=== PATIENT | male | born 1940 | race Caucasian/White ===

== ENCOUNTER 2016-10-12 19:15 | Emergency (ER) | payer MEDICARE, BC ==
[~2016-10-12] VITALS: Ht 188 cm; Wt 102.7 kg
[~2016-10-12 19:15] MED LIST: ASCO-297 PO; ASPI-730 PO; ATOR80TA17 PO; FERR-67 PO; FISH1CAP29 PO; LOSA50TA17 PO; METO25TA6 PO; MULT1CAP47 PO; NITR0.4T39 SL; OMEP20TA2 PO; [UNRECOGNIZED DRUG - CODE] PO
--- OUTSIDE RECORDS SUMMARY | 2016-10-12 19:19 | XMS REPORT | Continuity of Care Document ---
Author Author [facility] Organization [facility] Address Unknown Phone Unavailable Care Team Providers Care Sourcing Intern Name Role Phone AURELIA WEEMS II, MD Primary Care Physician [phone] Insurance Providers Guarantor Christy Sparks Jr Address [address] [place] [id number] Email [email or web address] [email or web address] Policy Number [id number] Subscriber's Name Christy Sparks Jr Relationship 18 Self Group Number [id number] Effective Date 07 Payer Medicare Policy Number [id number] Subscriber's Name Christy Sparks Jr Relationship 18 Self Effective Date 07 Chief Complaint and Reason for Visit Chief Complaint Blood Pressure Check Reason for Visit Blood pressure check Problems Past Problems Medical Problem Onset Date Blood pressure check Unknown Medications Current Home Medications Medication Dose Units Route Directions Days Qty Instructions Start Date Ascorbic Acid (Vitamin C) 1,000 Mg Tablet 1,000 Mg Oral Daily Aspirin 325 Mg Tablet 325 Mg Oral Daily 12/26/10 Atorvastatin Calcium (Lipitor) 80 Mg Tablet 80 Mg Oral Daily Ferrous Sulfate (Iron Supplement) 325 Mg Tablet 1 Tab Oral Twice A Day 60 Tablet 02/07/16 Fish Oil/[place]-3 Fatty Acids (Fish Oil 1,000 Mg Capsule) 1 Cap Capsule 2 Cap Oral Daily 12/26/10 Flaxseed Oil (Flax Seed Oil) 1,000 Mg Capsule 1,000 Mg Oral Twice A Day 12/26/10 Losartan Potassium (Cozaar) 50 Mg Tablet 50 Mg Oral Daily Metoprolol Tartrate 25 Mg Tablet 1 Tab Oral Twice A Day 180 Multivitamins W-Minerals (Multivitamin) 1 Cap Capsule 1 Cap Oral Daily 12/26/10 Nitroglycerin 0.4 Mg Tab.subl 0.4 Mg Sublingual as needed for Chest Tightness 02/07/16 Omeprazole Magnesium (Prilosec Otc) 20 Mg Tablet. 1 Tab Oral Daily 02/07/16 Social History Social History Problem Response Recorded Date/Time Onset Date Status Hx Substance Use No 02/07/2016 8:28am Not Applicable Not Applicable Hx Alcohol Use No 02/07/2016 8:28am Not Applicable Not Applicable Has the pt used tobacco in the last 12 months No 02/07/2016 8:28am Not Applicable Not Applicable Hospital Discharge Instructions No hospital discharge instructions. Plan of Care Discharge Date 10/12/16 6:50pm Disposition 01 DISCHARGED HOME, SELF-CARE Condition at Discharge Stable Prescriptions See Medication Section Referrals AURELIA WEEMS II, MD Address: [address] [place] [address] [id number] Functional Status No functional status results. Allergies, Adverse Reactions, Alerts Allergen Type Severity Reaction Status Last Updated No Known Drug Allergies Allergy Mild Active 12/26/10 Immunizations Query Response on File Recorded Date/Time Hx Influenza Vaccination Y FALL 201402/07/16 8:28am Hx Pneumococcal Vaccination Y WITHIN PAST 5 YEARS 02/07/16 8:28am Hx Influenza Vaccination Y fall 201402/07/16 8:28am Vital Signs Acute Vital Signs Vital Response Date/Time Pulse Rate (adult) 144 bpm (60 - 100) 10/12/2016 6:43pm O2 Sat by Pulse Oximetry 95 % (90 - 100) 10/12/2016 6:43pm Blood Pressure 97/68 mm Hg 10/12/2016 6:43pm Results No known relevant diagnostic tests, laboratory data and/or discharge summary. Procedures No known history of procedures. Encounters Encounter Location Arrival/Admit Date Discharge/Depart Date Attending Provider Departed Emergency Room [facility] 10/12/16 6:42pm 10/12/16 6: 50pm SHAUNA CHÁVEZ APRN Recent Diagnosis
[2016-10-12 19:34] VITALS: Ht 188 cm; Wt 102.7 kg
[2016-10-12] MEDS ORDERED: NORMAL SALINE 1,000 ML IV ONE (21:00)
--- NOTE | 2016-10-12 21:05 | ERPDOC ---
Departure Disposition Decision Date: Oct 12, 2016 Disposition Decision Time: 23:11 Disposition: 01 DISCHARGED HOME, SELF-CARE Impression Impression Impression: Primary Impression: Volume depletion Additional Impressions: Hypotension Hypotension type: orthostatic hypotension Qualified Codes: I95.1 - Orthostatic hypotension Tachycardia Severity: Moderate Condition: Improved Seen By: Physician only Referrals: AURELIA WEEMS II, MD (PCP/Family) Patient Instructions: Dehydration (ED) Problems/Meds/Labs Reviewed?: Yes Medications reviewed and manag: Yes Additional Instructions: Add an additional 2 glasses of fluid daily See your doctor for any ongoing symptoms. Follow up care ordered?: Yes Mental Status: Alert HPI - General Medical General Chief Complaint: Acute Medical Problem Stated Complaint: LOW BLOOD PRESSURE/HIGH PULSE Time Seen by Provider: 19:26 Source: patient, family Exam Limitations: no limitations HPI - General Medical Initial Comments Patient began feeling weak earlier in the day, after he received his Prevnar 23 shot yesterday. Patient checked his blood pressure and pulse at home, was found to have 140 pulse, with blood pressure 88/45. Patient double checked, and then went to the [address] [place] [address] walk-in clinic, where he was found to have a significant low blood pressure, elevated pulse, and was directed to the ER. Currently the patient states he's feeling better after rest, although he does admit he gets up and walks he becomes slightly sweaty. Occurred At: home Onset: Rapid Duration: 6-12 hrs Severity: moderate, severe Associated Symptoms: cough, DENIES: chest pain, diaphoresis, fever/chills, headaches, loss of appetite, malaise, nausea/vomiting, rash, seizure, shortness of breath, syncope, weakness Hx of Similar Symptoms: Yes Allergies: Coded Allergies: No Known Drug Allergies (Verified Allergy, Mild, 10/12/16) Past History Past Medical History Metabolic: hypercholesterolemia, hypertension Cardiac: CAD GI: GERD Surgical History General: colonoscopy (with polyptectomy) Cardiac: cardiac bypass, cardiac cath Vaccines Hx Influenza Vaccination: Yes (FALL 2014) Hx Pneumococcal Vaccination: Yes (WITHIN PAST 5 YEARS) Social History Smoking Status: Never smoker Does patient use chewing tobac: No Second Hand Exposure: No Substance Use Type: does not use Alcohol Intake: none Record Review Pertinent history updated: Yes Review of Systems Constitutional Constitutional: DENIES: appetite decrease, appetite increase, chills, dizziness , fever, weakness ENMT Ears: DENIES: pain Hearing: DENIES: hearing loss, tinnitus Balance: DENIES: vertigo Mouth/Throat: DENIES: change in swallowing, change in voice, hoarsness, painful swallowing, sore throat Cardiovascular Cardiac: DENIES: chest pain, dyspnea on exertion Rhythm/Rate: DENIES: irregular beat, palpitations, tachycardia Vascular: DENIES: pedal edema Pulmonary Respiratory: DENIES: cough, dyspnea, pleuritic chest pain GI Upper Abdomen: DENIES: dysphagia, heartburn/indigestion, nausea, pain, vomiting Lower Abdomen: DENIES: blood in stool, constipation, diarrhea, pain General: DENIES: burning, dysuria, frequency, pain, urgency Musculoskeletal General: DENIES: cramps, joint pain, joint swelling, pain, weakness Integumentary Skin: DENIES: rash, sores Neurological General: DENIES: headache, numbness, tingling, vertigo, weakness Psychiatric Psychiatric: DENIES: anxiety, depression, nervousness Physical Exam General General Nourishment: well nourished, well developed, appears stated age, no acute distress General Body Habitus: well groomed Vitals and Pain First Documented Vital Signs Date Time Temp Pulse Resp B/P Pulse Ox O2 Delivery O2 Flow Rate FiO2 10/12/16 19:34 98.5 136 17 94/61 94 Room Air Weight: Kilograms: 102.700 Height (feet): 6 Height (inches): 2.00 Triage Pain Scale: RN VS reviewed by Provider: Yes Comments Patient is a post intensive and tachycardic at rest, although asymptomatic Normal Exams: Head: Normocephalic w/o trauma Eyes: Pupils are PERRLA w/ EOMI, No scleral icterus, irritation, or foreign bodies noted ENMT: No facial trauma, nasal exudates, pharyngeal erythema, or exudates are noted Neck: Full range of motion, without adenopathy, JVD, bruits or thyromegaly Chest/Resp: Clear all wong, with good airflow, and symmetry bilaterally CV: Regular rate and rhythm, without murmur or gallop, Pulses 2+ all extremities, capillary refill, <2 seconds all ext., no pedal edema noted Abdomen: Bowel sounds positive, soft, non-tender, non-distended, no hepatosplenomegaly, masses or bruits noted Lymphatic: No lymphadenopathy, or lymphedema noted Musculoskeletal: No tenderness, or deformity noted, good range of motion, all extremities Integumentary: No rashes, hives, or bruising noted, hair and nails, without abnormality Neurologic: Patient is alert, and oriented, cranial nerves, motor/sensory/ cerebellar, exams w/o gross deficits, to observation Psychiatric: Patient exhibits, appropriate attention, emotion and affect Cardiovascular (brief) Cardiac: FOUND: regular rate (at absolute rest, patient has not significant tachycardic, the patient does have profound tachycardia with deep inspiration or sitting up/standing), regular rhythm Progress Results/Orders Orders Procedure Category Date Status Time Iv Lock (Ed Only) EDM 10/12/16 Transmitted 21:00 Cbc W/Auto LAB 10/12/16 Complete Diff-Reflex Manual Cmp - Comprehensive LAB 10/12/16 Complete Metabolic Lactate - Lactic Acid LAB 10/12/16 Complete Ua, Dip Wreflex LAB 10/12/16 Complete Microsc & Tower Cleaner 21:00 EKG EKG 10/12/16 Taken Troponin I W LAB 10/12/16 Complete Hemolysis Index Chest, Pa & Lateral RAD 10/12/16 Taken Normal Saline (Normal PHA 10/12/16 Complete Saline Iv) 21:00 Lab Results Laboratory Tests Test 10/12/16 21:48 10/12/16 22:49 White Blood Count 9.0T/MM3 Red Blood Count 4.35M/MM3 Hemoglobin 13.2GM/DL Hematocrit 39.7% Mean Corpuscular Volume 91.3UM3 Mean Corpuscular Hemoglobin 30.3UUG Mean Corpuscular Hemoglobin Concent 33.2GM/DL RDW Standard Deviation 48.8FL Platelet Count 180T/MM3 Mean Platelet Volume 9.7UM3 Immature Granulocyte % (Auto) 0.2% Neutrophils (%) (Auto) 69.5% Lymphocytes (%) (Auto) 22.3% Monocytes (%) (Auto) 6.8% Eosinophils (%) (Auto) 1.0% Basophils (%) (Auto) 0.2% Absolute Immature Granulocyte (auto 0.02T/MM3 Absolute Neutrophils (auto) 6.3T/MM3 Absolute Lymphocytes (auto) 2.0T/MM3 Absolute Monocytes (auto) 0.6T/MM3 Absolute Eosinophils (auto) 0.1T/MM3 Absolute Basophils (auto) 0.0T/MM3 Turbidity < 20 Sodium Level 143MEQ/L Potassium Level 4.6MEQ/L Chloride Level 108MEQ/L Carbon Dioxide Level 26MEQ/L Anion Gap 9MEQ/L Blood Urea Nitrogen 24.0MG/DL Creatinine 1.5MG/DL Glomerular Filtration Rate Calc 46 BUN/Creatinine Ratio 16RATIO Glucose Level 94MG/DL Calculated Osmolality 279MOSM/KG Calcium Level 9.4MG/DL Total Bilirubin 0.80MG/DL Icterus Index < 2 Aspartate Amino Transf (AST/SGOT) 30U/L Alanine Aminotransferase (ALT/SGPT) 37U/L Alkaline Phosphatase 72U/L Troponin I 0.036ng/ml Total Protein 6.8G/DL Albumin 3.7G/DL Globulin 3.1G/DL Albumin/Globulin Ratio 1.2RATIO Plasma Lactate 1.3MMOL/L Chemistry Specimen Hemolysis < 15 Urine Collection Type Cleancatch-midstream Urine Color Yellow Urine Turbidity Clear Urine pH 6.0 Urine Specific [place] 1.010 Urine Protein Negative Urine Glucose (UA) Negative Urine Ketones Negative Urine Blood Negative Urine Nitrite Negative Urine Bilirubin Negative Urine Urobilinogen 1.0EU/DL Urine Leukocyte Esterase Negative Urinalysis Comment Microscopic not ind. Medications Current ED Medications Sodium Chloride (Normal Saline IV) 1,000 ml @ 0 mls/hr Q0M ONCE IV Last administered on 10/12/16t 21:47; Start 10/12/16 at 21:00; Stop 10/12/16 at 21:02 ; Status DC Progress Progress Patient given 1 L normal saline IV fluid bolus EKG - n CBC - n CMP - n UA - n Troponin - n Chest x-ray - n After IV fluid bolus, patient's blood pressure normalized, pulse normalized, and patient has no orthostasis on bedside exam. GARETH GUTIÉRREZ MD Oct 12, 2016 21:05
--- NOTE | 2016-10-12 21:08 | NUR ---
IMAGING PT TO IMAGING VIA CART AT THIS TIME.
--- NOTE | 2016-10-12 21:13 | NUR ---
IMAGING PT RETURN FROM IMAGING VIA CART AT THIS TIME.
[2016-10-12 21:57] LABS: BASOPHILS % (AUTO) 0.2 % (0-2); EOSINOPHILS # (AUTO) 0.1 T/MM3 (0-0.5); HCT - HEMATOCRIT 39.7 % (41-53); HGB - HEMOGLOBIN 13.2 GM/DL (13.5-17.5); IMMATURE GRANULOCYTE # (AUTO) 0.02 T/MM3 (0.00-0.03); IMMATURE GRANULOCYTE % (AUTO) 0.2 % (0.0-0.5); LYMPHOCYTES % (AUTO) 22.3 % (23-45); MEAN CORPUSCULAR HGB 30.3 UUG (26-34); MEAN CORPUSCULAR HGB CONC(MCHC 33.2 GM/DL (31-37); MEAN CORPUSCULAR VOLUME 91.3 UM3 (80-100); MEAN PLATELET VOLUME 9.7 UM3 (9.4-12.4); MONOCYTES # (AUTO) 0.6 T/MM3 (0-0.8); MONOCYTES % (AUTO) 6.8 % (0-9.0); NEUTROPHILS #(AUTO)-ABSOLUTE 6.3 T/MM3 (1.8-7.7); NEUTROPHILS % (AUTO) 69.5 % (33-66); RED BLOOD COUNT 4.35 M/MM3 (4.50-5.90)
[2016-10-12 22:02] LABS: LACTATE - LACTIC ACID 1.3 MMOL/L (0.6-2.2)
[2016-10-12 22:07] LABS: ALBUMIN 3.7 G/DL (3.5-5.0); ALBUMIN/GLOBULIN RATIO 1.2 RATIO (1.1-2.2); ALKALINE PHOSPHATASE 72 U/L (38-126); ALT (SGPT) 37 U/L (21-72); ANION GAP 9 MEQ/L (5-15); AST (SGOT) 30 U/L (17-59); BUN/CREATININE RATIO 16 RATIO (6-26); CALCIUM 9.4 MG/DL (8.4-10.2); CHLORIDE 108 MEQ/L (98-107); CO2 - CARBON DIOXIDE 26 MEQ/L (22-30); CREATININE 1.5 MG/DL (0.8-1.5); GLOMERULAR FILTRATION RATE 46; GLUCOSE 94 MG/DL (75-110); POTASSIUM 4.6 MEQ/L (3.6-5); SODIUM 143 MEQ/L (134-144); TOTAL PROTEIN 6.8 G/DL (6.3-8.2)
[2016-10-12 22:56] LABS: BLOOD, URINE NEGATIVE (NEGATIVE); COLOR,URINE YELLOW (YELLOW); LEUKOCYTE ESTERASE ,URINE NEGATIVE (NEGATIVE); NITRITE,URINE NEGATIVE (NEGATIVE)
[2016-10-12 23:28] VITALS: BP 116/68; PULSE 64; RESP 16; TEMP 98.5; O2SAT 95
--- NOTE | 2016-10-12 23:28 | NUR ---
DEPART PT GIVEN DI FOR DEHYDRATION. VERBALIZES UNDERSTANDING OF DI. QUESTIONS ASKED/ANSWERED - DENIES FURTHER QUESTIONS/NEEDS AT THIS TIME. PT DENIES PAIN, CP, DIZZINESS, LIGHTHEADEDNESS AT THIS TIME. PT INDEPENDENTLY STANDS AT SIDE OF BED - DENIES ANY OF THE AFOREMENTIONED. IV SITE REMOVED. PERSONAL BELONGINGS GATHERED. PT ESCORTED/AMBULATED TO ED EXIT - GAIT STABLE, NO SIGN OF DISTRESS.
--- NOTE | 2016-10-13 11:32 | DI ---
INDICATION: ITS.REASON: hypotension with tachycardia, mild cough PROCEDURE: CHEST 2-VIEWS UPRIGHT (PA \T\ LAT) Encounter: Initial COMPARISON: None FINDINGS: Emphysema. There is increased interstitial prominence in both lung bases, left greater than right particularly posteriorly on the lateral view. No lobar consolidation however. No pneumothorax or effusion. Post-CABG changes. Cardiac silhouette is upper limits of normal to mildly enlarged. Mediastinal contours appear normal. Pulmonary vascularity is grossly normal. Impression: Lower lobe opacities, some of which are likely chronic although a superimposed early or developing pneumonia cannot be entirely excluded. Recommend clinical and laboratory correlation. .
== END 2016-10-12 23:28 | disposition home or self-care (01) ==
LOC: ED 19:15
DX: I95.1 Orthostatic hypotension (principal); E86.9 Volume depletion, unspecified; R00.0 Tachycardia, unspecified; I10 Essential (primary) hypertension; I25.10 Atherosclerotic heart disease of native coronary artery without angina pectoris; Z95.1 Presence of aortocoronary bypass graft
CPT/HCPCS: 71020; 80053; 81003; 83605; 84484; 85025; 93005; 99284; J7030

== ENCOUNTER → 2016-10-23 | Outpatient (CLI) | payer MEDICARE, BC ==
--- NOTE | 2016-10-23 11:50 | DI ---
INDICATION: ITS.REASON: R05 COUGH PROCEDURE: CHEST 2-VIEWS UPRIGHT (PA \T\ LAT) Encounter: Subsequent COMPARISON: October 12, 2016 FINDINGS: Chest appears stable. No new consolidative process. No pleural effusion or pneumothorax. There are increased markings and areas of bronchiectasis or bronchial wall thickening in the lower lobes which may be chronic. Heart size and mediastinal contours are stable. Pulmonary vascularity appears normal. Impression: Unchanged appearance of the chest without focal pneumonia. .
== END ==
LOC: IMA 11:01
PROVIDERS: ATTEND Family Medicine
DX: R05 Cough (principal)